=== PATIENT | female | born 1995 | race American Indian/Alaskan Native ===

== ENCOUNTER 2020-08-25 15:43 | Emergency (ER) | payer SELFPAY ==
[2020-08-25 16:34] VITALS: BP 133/75
--- NOTE | 2020-08-25 17:00 | Event Note ---
ED Screening Note Date of service: 08/25/20 Time: 16:58 ED Screening Note: 25-year-old A1 female (10 weeks gestation) presents to the emergency department with complaints of lower abdominal pain radiating to her back bilaterally with associated vaginal bleeding starting yesterday. Patient states her last ended in a miscarriage. No preceding trauma. Patient underwent sonographic evaluation approximately 6 weeks into her . Intrauterine position confirmed. Last OB appointment was approximately 2 weeks ago and was progressing normally. General: Awake, appropriately interactive, no acute distress. Neck: Supple. Full range of motion intact. Cardiovascular: Normal peripheral perfusion. Pulmonary: No respiratory distress. Patient is speaking normally without use of accessory muscles. Abdomen: Soft, nondistended. Diffuse lower abdominal tenderness without guarding, rigidity, or rebound. Skin: No apparent rashes or lesions. Neurological: No facial asymmetry. Speech is clear. Follows commands. Patient is alert and oriented. Musculoskeletal: Moves all four extremities spontaneously with normal range of motion. Psych: Cooperative. Appropriate mood and affect. I have greeted and performed a focused rapid initial assessment of this patient. A comprehensive ED assessment and evaluation of the patient, analysis of all test results, and completion of the medical decision-making process will be conducted by additional ED providers. This initial assessment/diagnostic orders/clinical plan/treatment(s) is/are subject to change based on patients health status, clinical progression and re-assessment. Further treatment and workup at subsequent clinical provider's discretion. Patient/guardian urged not to elope from the ED as their condition may be serious if not clinically assessed and managed.
[2020-08-25 17:28] LABS: Basophils % (Auto) 0.3 % (0.0-1.8); Eosinophils % (Auto) 0.3 % (0.0-4.3); Hematocrit 36.2 % (30.3-42.9); Hemoglobin 12.3 gm/dl (10.1-14.3); Lymphocytes # (Auto) 1.5 K/mm3 (1.2-5.4); Lymphocytes % (Auto) 17.8 % (13.4-35.0); Mean Corpuscular HGB Conc 34 % (30-34); Mean Corpuscular Volume 82 fl (79-97); Monocytes # (Auto) 1.1 K/mm3 (0.0-0.8); Monocytes % (Auto) 12.6 % (0.0-7.3); Platelet Count 323 K/mm3 (140-440); Red Blood Count 4.42 M/mm3 (3.65-5.03); Red Cell Distribution Width 13.8 % (13.2-15.2)
[2020-08-25 17:41] LABS: INR 1.01 (0.87-1.13)
[2020-08-25 17:42] LABS: Partial Thromboplastin Time 27.1 Sec. (24.2-36.6)
[2020-08-25 17:43] LABS: Alanine Aminotransferase 30 units/L (7-56); Albumin 3.8 g/dL (3.9-5); Blood Urea Nitrogen 5 mg/dL (7-17); Calcium 9.4 mg/dL (8.4-10.2); Hemolysis Index 3
[2020-08-25 17:44] LABS: BUN/Creatinine Ratio 10
[2020-08-25] MEDS ORDERED: SODIUM CHLORIDE 0.9% 1000 ML 1,000 ML IV ONE (19:30)
[2020-08-25] MEDS ORDERED: diphenhydrAMINE 50 MG/ML VIAL IV ONE (19:30)
[2020-08-25] MEDS ORDERED: FAMOTIDINE 20 MG/2 ML INJ IV ONE (19:30)
[2020-08-25] MEDS ORDERED: ACETAMINOPHEN 500 MG TAB PO ONE (19:30)
[2020-08-25] MEDS ORDERED: METOCLOPRAMIDE 10 MG/2 ML INJ IV ONE (19:30)
--- NOTE | 2020-08-25 19:30 | Ultrasound Report ---
EARLY OBSTETRICAL ULTRASOUND INDICATION: lower abdominal/back pain/vag bleeding COMPARISON: None pertinent available TECHNIQUE: Transabdominal FINDINGS: Early intrauterine is seen. pole and yolk sac are noted. Cardiac activity w as documented with heart rate of 167 bpm. No obvious abnormalities are seen in a brief ex amination but this is not a full anatomical survey at this age. There is a possible small implantatio nal bleed immediately distal to the sac measuring approximately 13 mm. Placental location is probably anterior but is not well developed. Estimated gestational age by crown-rump length is 11 weeks 3 day s which is less than the 13 weeks 3 days expected clinically by dates. No ovarian abnormalities are seen. No free fluid is noted. IMPRESSION: Early intrauterine with possible small implantational bleed. Recommend follow-u p. Signer Name: Cedric Siddiqui MD Signed: 08/25/2020 7:25 PM Workstation Name: [id number]
--- NOTE | 2020-08-25 19:33 | Emergency Department Report ---
ED N/V/D HPI - General Chief complaint: Abdominal Pain Stated complaint: 10 WEEKS , N/V, SPOTTING Source: patient Mode of arrival: Ambulatory Limitations: No Limitations - History of Present Illness Initial comments: Patient is a A1 25-year-old -Serbian female with no past medical history and who is approximately 10 weeks gestation presents to the ED with co mplaint of acute onset persistent intractable nausea and vomiting with diffuse abdominal pain for the last 3 days. Patient states that she has not been able to keep anything down including water or food for the last 3 days. Patient states that in the last 12 hours she has had multiple nausea vomiting episodes and now just dry heaves. Patient also states that she had a single episode of vaginal spotting 24 hours ago but which has since resolved. Patient denies fever, chills, chest pain, shortness of breath, sore throat, dizziness, syncope, headache, vaginal discharge, dysuria, urinary frequency and urgency or low back pain. MD complaint: nausea, vomiting, abdominal pain, other (10 weeks gestation) -: Sudden, days(s) (3) Description of Vomiting: watery, bilious Associated Abdominal Pain: Yes (Diffuse) Location: diffuse Radiation: none Severity: severe Pain Scale: 7 Quality: cramping, aching Consistency: intermittent Improves with: none Worsens with: eating, vomiting Context: other (10 weeks gestation) Associated Symptoms: denies other symptoms, loss of appetite, malaise, nausea/vomiting. denies: chest pain, cough, diaphoresis, fever/chills, headaches, rash, dysuria, shortness of breath, syncope, weakness, other - Related Data Previous Rx's Medication Instructions Recorded Last Taken Type Famotidine [Pepcid] 20 mg PO BID #30 tablet 08/26/20 Unknown Rx Metoclopramide [Reglan] 10 mg PO TID PRN #30 tab 08/26/20 Unknown Rx Allergies Allergy/AdvReac Type Severity Reaction Status Date / Time No Known Allergies Allergy Unverified 08/25/20 16:32 ED Review of Systems ROS: Stated complaint: 10 WEEKS , N/V, SPOTTING Other details as noted in HPI Constitutional: denies: chills, fever Eyes: denies: eye pain, eye discharge, vision change ENT: denies: ear pain, throat pain Respiratory: denies: cough, shortness of breath, wheezing Cardiovascular: denies: chest pain, palpitations Endocrine: no symptoms reported Gastrointestinal: abdominal pain, nausea, vomiting. denies: diarrhea Genitourinary: denies: urgency, dysuria, discharge Musculoskeletal: denies: back pain, joint swelling, arthralgia Skin: denies: rash, lesions Neurological: headache. denies: weakness, paresthesias Psychiatric: denies: anxiety, depression Hematological/Lymphatic: denies: easy bleeding, easy bruising ED Past Medical Hx - Past Medical History Previous Medical History?: Yes Hx Hypertension: Yes (during ) - Surgical History Past Surgical History?: Yes Additional Surgical History: back surgery - Medications Home Medications: Home Medications Medication Instructions Recorded Confirmed Last Taken Type Famotidine [Pepcid] 20 mg PO BID #30 tablet 08/26/20 Unknown Rx Metoclopramide [Reglan] 10 mg PO TID PRN #30 tab 08/26/20 Unknown Rx ED Physical Exam - General Limitations: No Limitations General appearance: alert, in no apparent distress - Head Head exam: Present: atraumatic, normocephalic, normal inspection - Eye Eye exam: Present: normal appearance, PERRL, EOMI Pupils: Present: normal accommodation - ENT ENT exam: Present: normal exam, normal orophraynx, mucous membranes moist, TM's normal bilaterally, normal external ear exam - Neck Neck exam: Present: normal inspection, full ROM - Respiratory Respiratory exam: Present: normal lung sounds bilaterally. Absent: respiratory distress, wheezes, rales, rhonchi, stridor, chest wall tenderness, accessory muscle use, decreased breath sounds, prolonged expiratory - Cardiovascular Cardiovascular Exam: Present: regular rate, normal rhythm, normal heart sounds. Absent: systolic murmur, diastolic murmur, rubs, gallop - GI/Abdominal GI/Abdominal exam: Present: soft, tenderness (Palpable diffuse abdominal tenderness), normal bowel sounds. Absent: guarding, rebound, hyperactive bowel sounds, hypoactive bowel sounds - Extremities Exam Extremities exam: Present: normal inspection, full ROM, normal capillary refill - Back Exam Back exam: Present: normal inspection, full ROM. Absent: tenderness, CVA tenderness (R), CVA tenderness (L), muscle spasm, paraspinal tenderness - Neurological Exam Neurological exam: Present: alert, oriented X3, CN II-XII intact, normal gait, reflexes normal - Psychiatric Psychiatric exam: Present: normal affect, normal mood - Skin Skin exam: Present: warm, dry, intact, normal color. Absent: rash ED Course Vital Signs 08/25/20 16:32 Temperature 98.7 F Pulse Rate 78 Respiratory 16 Rate Blood Pressure 133/75 [Right] O2 Sat by Pulse 97 Oximetry ED Medical Decision Making - Lab Data Result diagrams: 08/25/20 17:03 08/25/20 17:03 - Radiology Data Radiology results: report reviewed, image reviewed [facility] [address] [place] [address] Ultrasound Report Signed Patient: DEVEN CARDONA MR#: [id number] 7 : 1995 Acct:[id number] Age/Sex: 25 / F ADM Date: 08/25/20 Loc: ED Attending Dr: Ordering Physician: JUAN GRIMALDO Date of Service: 08/25/20 Procedure(s): US OB <= 14 weeks fetus Accession Number(s): [id number] cc: JUAN GRIMALDO EARLY OBSTETRICAL ULTRASOUND INDICATION: lower abdominal/back pain/vag bleeding COMPARISON: None pertinent available TECHNIQUE: Transabdominal FINDINGS: Early intrauterine is seen. pole and yolk sac are noted. Cardiac activity was documented with heart rate of 167 bpm. No obvious abnormalities are seen in a brief examination but this is not a full anatomical survey at this age. There is a possible small implantational bleed immediately distal to the sac measuring approximately 13 mm. Placental location is probably anterior but is not well developed. Estimated gestational age by crown-rump length is 11 weeks 3 days which is less than the 13 weeks 3 days expected clinically by dates. No ovarian abnormalities are seen. No free fluid is noted. IMPRESSION: Early intrauterine with possible small implantational bleed. Recommend follow-up. Signer Name: Cedric Siddiqui MD Signed: 08/25/2020 7:25 PM Workstation Name: [id number] Transcribed By: LAZ Dictated By: Cedric Siddiqui MD Electronically Authenticated By: Cedric Siddiqui MD Signed Date/Time: 08/25/201924 DD/ 20 TD/TT: - Medical Decision Making This is a A1 25-year-old -Serbian female with no past medical history and who is approximately 10 weeks gestation presents to the ED with complaint of acute onset persistent intractable nausea and vomiting with diffuse abdominal pain for the last 3 days. Patient states that she has not been able to keep anything down including water or food for the last 3 days. Patient states that in the last 12 hours she has had multiple nausea vomiting episodes and now just dry heaves. Patient also states that she had a single episode of vaginal spotting 24 hours ago but which has since resolved. In the ED, patient is alert and oriented x3 and is not in any distress but appears to be uncomfortable and weak. Lab test results were reviewed and are all nonactionable except for mild acute hyponatremia 133 mmol/L and hCG quant of [id number]. The rest the lab test results were nonactionable. Patient however declined to give any urine for urinalysis. Transvaginal ultrasound showed early intrauterine is seen. pole and yolk sac are noted. Cardiac activity was documented with heart rate of 167 bpm. No obvious abnormalities are seen in a brief examination but this is not a full anatomical survey at this age. There is a possible small implantational bleed immediately distal to the sac measuring approximately 13 mm. Placental location is probably anterior but is not well developed. Estimated gestational age by crown-rump length is 11 weeks 3 days. Medications were ordered for nausea and vomiting, antacids and pain and also normal saline 1 L IV bolus x1. Patient however eloped from the ED prior to receiving all this medications and did not sign any AMA form before leaving the ED. - Differential Diagnosis Dehydration; hyperemesis gravidarum; GERD; UTI; ovarian cyst; kidney stones Critical care attestation.: If time is entered above; I have spent that time in minutes in the direct care of this critically ill patient, excluding procedure time. ED Disposition Clinical Impression: Hyperemesis gravidarum, Abdominal pain during in first trimester Disposition: ELOPED Is pt being admited?: No Does the pt Need Aspirin: No Condition: Stable Instructions: Abdominal Pain (ED), Abdominal Pain During , [id number], Morning Sickness, Hyperemesis Gravidarum Additional Instructions: All lab test results were reviewed and are all nonactionable except for acute hyponatremia 130 mmol/L. Transvaginal ultrasound showed single IUP of approximately 11 weeks and 3 days with a heart rate of 167 bpm. Therefore maintain a clear liquid diet for 1224 hrs., drink plenty of fluids, take medications as needed for nausea and vomiting and pain as well as antacids and follow-up with your [facility] physician in 3 to 5 days for reevaluation. Return to the ED immediately if symptoms get worse. Prescriptions: Famotidine [Pepcid] 20 mg PO BID #30 tablet Metoclopramide [Reglan] 10 mg PO TID PRN #30 tab PRN Reason: Nausea Referrals: LIGIA HOLLEY MD [Staff Physician] - 3-5 Days Time of Disposition: 21:00 Print Language: MALIAN
== END 2020-08-25 22:15 | disposition left against medical advice (07) ==
LOC: ED 15:43
DX: O21.0 Mild hyperemesis gravidarum (principal); O26.891 Other specified pregnancy related conditions, first trimester; R10.9 Unspecified abdominal pain; Z3A.10 10 weeks gestation of pregnancy; Z79.899 Other long term (current) drug therapy; Z98.890 Other specified postprocedural states
CPT/HCPCS: 36415; 76801; 80053; 83735; 84702; 85025; 85610; 85730; 86900; 86901